=== PATIENT | female | born 1945 | race Two or more races ===

== ENCOUNTER 2017-04-10 15:46 | Emergency (ER) | payer OTHER ==
[~2017-04-10] VITALS: Ht 162.6 cm; Wt 81.2 kg
[~2017-04-10 15:46] MED LIST: ANUSOL SUP1 SUPP.REC RC; CLONAZEPAM1 MG; LOSARTAN-HCTZ1 EAC2; MIRALAX510 GM PO; OMEPRAZOLE20 M1; OXCARBAZEPINE150 MG; SERTRALINE HCL100 MG
[2017-04-10] MEDS ORDERED: SYNTHROID50 MCG (16:36)
== END 2017-04-10 20:36 | disposition home or self-care (01) ==
LOC: ER 15:46
DX: S00.83XA Contusion of other part of head, initial encounter (principal); S00.532A Contusion of oral cavity, initial encounter; W22.8XXA Striking against or struck by other objects, initial encounter; Y93.89 Activity, other specified; Y92.89 Other specified places as the place of occurrence of the external cause; Y99.8 Other external cause status

== ENCOUNTER 2017-05-09 10:14 | Outpatient (CLI) | payer OTHER ==
[~2017-05-09 10:14] MED LIST changes: +SYNTHROID50 MCG
== END 2017-05-09 10:25 | disposition home or self-care (01) ==
LOC: RAD 10:14
DX: J32.9 Chronic sinusitis, unspecified (principal); M12.831 Other specific arthropathies, not elsewhere classified, right wrist; M19.031 Primary osteoarthritis, right wrist

== ENCOUNTER 2017-06-11 10:10 | Outpatient (CLI) | payer OTHER | END 2017-06-11 10:18 | disposition home or self-care (01) | LOC: TOM 10:10 | DX: S05.11XA Contusion of eyeball and orbital tissues, right eye, initial encounter (principal) ==

== ENCOUNTER 2017-11-12 14:31 | Outpatient (CLI) | payer OTHER | END 2017-11-12 14:36 | disposition home or self-care (01) | LOC: RAD 14:31 | DX: T79.9XXS Unspecified early complication of trauma, sequela (principal) ==

== ENCOUNTER 2017-11-15 10:43 | Emergency (ER) | payer OTHER ==
[~2017-11-15] VITALS: Ht 160 cm; Wt 81.6 kg
[2017-11-15] MEDS ORDERED: ZITHROMAX500 MG PO (11:55)
[2017-11-15] MEDS ORDERED: MECLIZINE HCL25 MG PO (11:55)
[2017-11-15] MEDS ORDERED: METOCLOPRAMIDE10 MG PO (11:55)
== END 2017-11-15 12:51 | disposition home or self-care (01) ==
LOC: ER 10:43
DX: J32.1 Chronic frontal sinusitis (principal)

== ENCOUNTER 2017-12-25 12:34 | Outpatient (CLI) | payer OTHER ==
[~2017-12-25 12:34] MED LIST changes: +MECLIZINE HCL25 MG PO; +METOCLOPRAMIDE10 MG PO; +ZITHROMAX500 MG PO
== END 2017-12-25 12:39 | disposition home or self-care (01) ==
LOC: RAD 12:34
DX: M46.47 Discitis, unspecified, lumbosacral region (principal)

== ENCOUNTER 2017-12-29 16:15 | Emergency (ER) | payer OTHER ==
[~2017-12-29] VITALS: Ht 160 cm; Wt 81.2 kg
== END 2017-12-29 19:55 | disposition home or self-care (01) ==
LOC: ER 16:15
DX: G89.11 Acute pain due to trauma (principal); M54.5 Low back pain; M53.3 Sacrococcygeal disorders, not elsewhere classified

== ENCOUNTER 2018-01-04 08:55 | Day surgery (SDC) | payer OTHER | END 2018-01-04 18:10 | disposition home or self-care (01) | LOC: CIR.AMB 08:55 | DX: G50.0 Trigeminal neuralgia (principal) ==

== ENCOUNTER 2018-01-21 11:59 | Outpatient (CLI) | payer OTHER | END 2018-01-21 12:01 | disposition home or self-care (01) | LOC: RAD 11:59 | DX: T79.9XXS Unspecified early complication of trauma, sequela (principal) ==

== ENCOUNTER 2018-02-20 07:35 | Outpatient (CLI) | payer OTHER ==
[~2018-02-20] VITALS: Ht 157.5 cm; Wt 82.6 kg
[2018-02-20] MEDS ORDERED: LIPO-FLAVONOID1 EACH PO (09:32)
== END 2018-02-20 07:50 | disposition home or self-care (01) ==
LOC: OFIC 805 07:35
DX: R42 Dizziness and giddiness (principal)

== ENCOUNTER 2018-06-20 11:48 | Outpatient (CLI) | payer OTHER ==
[~2018-06-20 11:48] MED LIST changes: +LIPO-FLAVONOID1 EACH PO
== END 2018-06-20 13:00 | disposition home or self-care (01) ==
LOC: NUCLEAR 11:48
DX: I20.1 Angina pectoris with documented spasm (principal)

== ENCOUNTER → 2018-11-05 | Outpatient (CLI) | payer OTHER | END | disposition home or self-care (01) | LOC: MRI 10:15 | DX: G11.2 Late-onset cerebellar ataxia (principal); G50.0 Trigeminal neuralgia | CPT/HCPCS: 70551 ==

== ENCOUNTER 2018-12-27 09:12 | Outpatient (CLI) | payer OTHER ==
[~2018-12-27] VITALS: Ht 152.4 cm; Wt 78.0 kg
== END 2018-12-27 12:54 | disposition home or self-care (01) ==
LOC: OFIC 805 09:12
DX: J31.0 Chronic rhinitis (principal); R42 Dizziness and giddiness; H04.201 Unspecified epiphora, right side

== ENCOUNTER 2019-04-26 12:35 | Emergency (ER) | payer OTHER ==
[~2019-04-26] VITALS: Ht 157.5 cm; Wt 75.3 kg
[2019-04-26] MEDS ORDERED: ZANTAC150 MG (13:19)
[2019-04-26] MEDS ORDERED: PLAVIX75 MG (13:19)
[2019-04-26] MEDS ORDERED: IRBESARTAN-HCT1 EACH (13:19)
[2019-04-26] MEDS ORDERED: PROTONIX40 MG (13:20)
== END 2019-04-26 22:05 | disposition home or self-care (01) ==
LOC: ER 12:35
DX: R31.0 Gross hematuria (principal); R42 Dizziness and giddiness; R10.84 Generalized abdominal pain; R19.7 Diarrhea, unspecified

== ENCOUNTER 2019-05-29 12:44 | Outpatient (CLI) | payer OTHER ==
[~2019-05-29] VITALS: Ht 152.4 cm; Wt 82.6 kg
[~2019-05-29 12:44] MED LIST changes: +IRBESARTAN-HCT1 EACH; +PLAVIX75 MG; +PROTONIX40 MG; +ZANTAC150 MG
== END 2019-05-29 14:21 | disposition home or self-care (01) ==
LOC: OFIC 805 12:44
DX: J31.0 Chronic rhinitis (principal); R42 Dizziness and giddiness; J34.2 Deviated nasal septum; R09.82 Postnasal drip; R09.81 Nasal congestion; R06.02 Shortness of breath

== ENCOUNTER 2019-07-03 13:44 | Outpatient (CLI) | payer OTHER ==
[~2019-07-03] VITALS: Ht 152.4 cm; Wt 81.6 kg
== END 2019-07-03 17:17 | disposition home or self-care (01) ==
LOC: OFIC 805 13:44
DX: K21.0 Gastro-esophageal reflux disease with esophagitis (principal); J34.2 Deviated nasal septum; J45.998 Other asthma
CPT/HCPCS: 31575; 99213; G0463

== ENCOUNTER 2019-08-29 11:18 | Outpatient (CLI) | payer OTHER | END 2019-08-29 11:25 | disposition home or self-care (01) | LOC: RAD 11:18 | DX: M12.89 Other specific arthropathies, not elsewhere classified, multiple sites (principal); M46.47 Discitis, unspecified, lumbosacral region; G50.0 Trigeminal neuralgia; R56.9 Unspecified convulsions | CPT/HCPCS: 70551 ==

== ENCOUNTER 2019-09-29 08:46 | Outpatient (CLI) | payer OTHER ==
[~2019-09-29] VITALS: Ht 152.4 cm; Wt 83.9 kg
[2019-09-29] MEDS ORDERED: FLONASE16 GM NASAL (12:23)
[2019-09-29] MEDS ORDERED: ZYRTEC10 M3 PO (12:23)
== END 2019-09-29 15:48 | disposition home or self-care (01) ==
LOC: OFIC 805 08:46
PROVIDERS: ATTEND Otolaryngology
DX: J34.2 Deviated nasal septum (principal); J31.0 Chronic rhinitis

== ENCOUNTER 2019-10-27 12:05 | Outpatient (CLI) | payer OTHER ==
[~2019-10-27 12:05] MED LIST changes: +FLONASE16 GM NASAL; +ZYRTEC10 M3 PO
== END 2019-10-27 12:08 | disposition home or self-care (01) ==
LOC: TOM 12:05
PROVIDERS: ATTEND Otolaryngology
DX: J31.0 Chronic rhinitis (principal); J32.1 Chronic frontal sinusitis; J34.2 Deviated nasal septum

== ENCOUNTER 2019-12-26 05:56 | Day surgery (SDC) | payer OTHER ==
[~2019-12-26 05:56] MED LIST changes: +COZAAR100 MG PO
[2019-12-26] MEDS ORDERED: COLACE100 MG PO (12:29)
[2019-12-26] MEDS ORDERED: PERCOCET 5-3251 EACH PO (12:29)
== END 2019-12-26 16:45 | disposition home or self-care (01) ==
LOC: CIR.AMB 05:56
PROVIDERS: ATTEND Surgery
DX: K64.8 Other hemorrhoids (principal); Z20.828 Contact with and (suspected) exposure to other viral communicable diseases

== ENCOUNTER → 2020-04-08 13:21 | Outpatient (CLI) | payer OTHER | END | disposition home or self-care (01) | LOC: LAB 13:21 | PROVIDERS: ATTEND Internal Medicine Cardiovascular Disease | DX: U07.1 COVID-19 (principal); R05 Cough; R06.2 Wheezing; R50.9 Fever, unspecified ==

== ENCOUNTER → 2020-04-08 | Outpatient (CLI) | payer OTHER ==
[~2020-04-08] MED LIST changes: +COLACE100 MG PO; +PERCOCET 5-3251 EACH PO
== END | disposition home or self-care (01) ==
LOC: MRI 11:56
PROVIDERS: ATTEND Internal Medicine Cardiovascular Disease
DX: M43.17 Spondylolisthesis, lumbosacral region (principal); M54.15 Radiculopathy, thoracolumbar region
CPT/HCPCS: 72148

== ENCOUNTER 2020-06-15 12:13 | Outpatient (CLI) | payer OTHER | END 2020-06-15 15:32 | disposition home or self-care (01) | LOC: MRI 12:13 | PROVIDERS: ATTEND Internal Medicine Cardiovascular Disease | DX: M47.892 Other spondylosis, cervical region (principal); M12.88 Other specific arthropathies, not elsewhere classified, other specified site | CPT/HCPCS: 72141 ==

== ENCOUNTER 2020-08-31 13:49 | Outpatient (CLI) | payer OTHER | END 2020-08-31 14:32 | disposition home or self-care (01) | LOC: RAD 13:49 | PROVIDERS: ATTEND Surgery Surgery of the Hand | DX: M54.2 Cervicalgia (principal); G56.01 Carpal tunnel syndrome, right upper limb; G56.02 Carpal tunnel syndrome, left upper limb ==

== ENCOUNTER 2020-09-27 13:56 | Outpatient (CLI) | payer OTHER | END 2020-09-27 13:58 | disposition home or self-care (01) | LOC: RAD 13:56 | PROVIDERS: ATTEND Surgery Surgery of the Hand | DX: Z01.818 Encounter for other preprocedural examination (principal) ==

== ENCOUNTER → 2020-09-29 08:51 | Outpatient (CLI) | payer OTHER | END | disposition home or self-care (01) | LOC: LAB 08:51 | PROVIDERS: ATTEND Surgery Surgery of the Hand | DX: Z01.818 Encounter for other preprocedural examination (principal); D68.9 Coagulation defect, unspecified; I10 Essential (primary) hypertension ==

== ENCOUNTER 2021-01-13 12:32 | Outpatient (CLI) | payer OTHER | END 2021-01-13 12:43 | disposition home or self-care (01) | LOC: RAD 12:32 | PROVIDERS: ATTEND Internal Medicine Cardiovascular Disease | DX: M25.78 Osteophyte, vertebrae (principal); M46.47 Discitis, unspecified, lumbosacral region; M12.88 Other specific arthropathies, not elsewhere classified, other specified site ==

== ENCOUNTER 2021-03-29 18:01 | Emergency (ER) | payer OTHER ==
[~2021-03-29] VITALS: Ht 160 cm; Wt 74.8 kg
[2021-03-29] MEDS ORDERED: CLEOCIN HCL300 MG PO (19:11)
== END 2021-03-29 19:32 | disposition home or self-care (01) ==
LOC: ER 18:01
DX: L08.89 Other specified local infections of the skin and subcutaneous tissue (principal); S61.011A Laceration without foreign body of right thumb without damage to nail, initial encounter; W27.8XXA Contact with other nonpowered hand tool, initial encounter; Y93.E8 Activity, other personal hygiene; Y92.89 Other specified places as the place of occurrence of the external cause; Y99.8 Other external cause status

== ENCOUNTER 2021-04-18 16:50 | Emergency (ER) | payer OTHER ==
[~2021-04-18] VITALS: Ht 160 cm; Wt 73.9 kg
[~2021-04-18 16:50] MED LIST changes: +CLEOCIN HCL300 MG PO
[2021-04-18] MEDS ORDERED: CLONAZEPAM1 MG PO (19:16)
== END 2021-04-18 22:46 | disposition home or self-care (01) ==
LOC: ER 16:50
DX: R07.89 Other chest pain (principal); F06.4 Anxiety disorder due to known physiological condition

== ENCOUNTER 2021-05-31 15:13 | Outpatient (CLI) | payer OTHER ==
[~2021-05-31 15:13] MED LIST changes: +CLONAZEPAM1 MG PO
== END 2021-05-31 15:20 | disposition home or self-care (01) ==
LOC: TOM 15:13 → EDBD 15:13 → TOM 15:20
PROVIDERS: ATTEND Otolaryngology
DX: J32.3 Chronic sphenoidal sinusitis (principal); J01.90 Acute sinusitis, unspecified

== ENCOUNTER 2021-07-06 14:36 | Outpatient (CLI) | payer OTHER | END 2021-07-06 15:00 | disposition home or self-care (01) | LOC: RAD 14:36 | PROVIDERS: ATTEND Internal Medicine Cardiovascular Disease | DX: M79.641 Pain in right hand (principal); M12.9 Arthropathy, unspecified; M46.40 Discitis, unspecified, site unspecified ==

== ENCOUNTER 2021-08-03 17:24 | Emergency (ER) | payer OTHER ==
[~2021-08-03] VITALS: Ht 160 cm; Wt 73.9 kg
== END 2021-08-03 21:52 | disposition home or self-care (01) ==
LOC: ER 17:24
DX: R51.9 Headache, unspecified (principal); I10 Essential (primary) hypertension; Z88.6 Allergy status to analgesic agent; Z91.013 Allergy to seafood

== ENCOUNTER 2021-11-16 07:35 | Outpatient (CLI) | payer OTHER | END 2021-11-16 07:40 | disposition home or self-care (01) | LOC: LAB 07:35 | PROVIDERS: ATTEND Internal Medicine Cardiovascular Disease | DX: I10 Essential (primary) hypertension (principal); E11.9 Type 2 diabetes mellitus without complications; E03.9 Hypothyroidism, unspecified; E78.2 Mixed hyperlipidemia; E55.9 Vitamin D deficiency, unspecified; Z12.11 Encounter for screening for malignant neoplasm of colon ==

== ENCOUNTER 2021-11-16 08:30 | Outpatient (CLI) | payer OTHER | END 2021-11-16 08:35 | disposition home or self-care (01) | LOC: MAMO-SONO 08:30 | DX: Z12.31 Encounter for screening mammogram for malignant neoplasm of breast (principal); N63.11 Unspecified lump in the right breast, upper outer quadrant ==

== ENCOUNTER 2021-12-07 18:43 | Emergency (ER) | payer OTHER ==
[~2021-12-07] VITALS: Ht 157.5 cm; Wt 73.9 kg
== END 2021-12-07 21:18 | disposition home or self-care (01) ==
LOC: ER 18:43
DX: M72.2 Plantar fascial fibromatosis (principal); F32.A Depression, unspecified; I10 Essential (primary) hypertension; Z88.6 Allergy status to analgesic agent; Z91.013 Allergy to seafood

== ENCOUNTER 2021-12-13 10:04 | Outpatient (CLI) | payer OTHER | END 2021-12-13 10:13 | disposition home or self-care (01) | LOC: SONOGRAMA 10:04 | DX: M72.2 Plantar fascial fibromatosis (principal); G57.61 Lesion of plantar nerve, right lower limb; S92.404A Nondisplaced unspecified fracture of right great toe, initial encounter for closed fracture ==

== ENCOUNTER 2022-05-09 16:19 | Outpatient (CLI) | payer OTHER | END 2022-05-09 16:29 | disposition home or self-care (01) | LOC: RAD 16:19 | PROVIDERS: ATTEND Internal Medicine Cardiovascular Disease | DX: M46.48 Discitis, unspecified, sacral and sacrococcygeal region (principal); M12.9 Arthropathy, unspecified ==

== ENCOUNTER 2022-07-10 11:17 | Outpatient (CLI) | payer OTHER | END 2022-07-10 15:29 | disposition home or self-care (01) | LOC: LAB 11:17 | PROVIDERS: ATTEND Internal Medicine Cardiovascular Disease | DX: I10 Essential (primary) hypertension (principal); E11.9 Type 2 diabetes mellitus without complications; E03.9 Hypothyroidism, unspecified; E78.2 Mixed hyperlipidemia; K92.1 Melena; Z12.11 Encounter for screening for malignant neoplasm of colon; M12.9 Arthropathy, unspecified ==

== ENCOUNTER 2022-10-17 15:03 | Emergency (ER) | payer OTHER ==
[~2022-10-17] VITALS: Ht 162.6 cm; Wt 70.3 kg
== END 2022-10-17 21:12 | disposition home or self-care (01) ==
LOC: ER 15:03
DX: M54.42 Lumbago with sciatica, left side (principal); Z88.6 Allergy status to analgesic agent; Z91.013 Allergy to seafood; I10 Essential (primary) hypertension; F32.89 Other specified depressive episodes

== ENCOUNTER 2023-02-13 11:06 | Outpatient (CLI) | payer OTHER ==
[2023-02-13 12:00] LABS: HEMATOCRIT 45.6 % (36.0-45.00); HEMOGLOBIN 14.9 g/dL (12.0-15.00); MEAN CELL VOLUME 92.9 fL (80.00-100.00); MEAN CORPUSCULAR HEMOGLOBIN 30.3 pg (27.00-32.0); MEAN CORPUSCULAR HGB CONC 32.6 g/dl (32.0-36.0); PLATELET COUNT 185 K/uL (150-450); RED BLOOD COUNT 4.91 M/uL (4.00-6.00); RED CELL DISTRIBUTION WIDTH 14.3 % (11.5-14.5)
[2023-02-13 12:21] LABS: URINE APPEARANCE Clear; URINE BILIRRUBIN Negative (NEGATIVE); URINE BLOOD Trace; URINE COLOR Yellow; URINE GLUCOSE Negative (NEGATIVE); URINE LEUKOCYTE Negative; URINE NITRATE Negative; URINE PROTEIN Negative (NEGATIVE); URINE UROBILINOGEN 0.2 E.U./dl
[2023-02-13 12:25] LABS: URINE BACTERIA 6641.1 uL (0.0-1933); URINE EPITHELIAL CELLS 85.3 uL (0.0-38.8); URINE RBC 17.6 uL (0.0-20.8); URINE WBC 26.2 uL (0.0-23.2)
[2023-02-13 12:48] LABS: CALCIUM 10.6 mg/dL (8.5-10.1); CHOL HDL RATIO 3.9 (0-5.0); CREATININE SERUM 0.86 mg/dL (0.55-1.02); GFR 63.65; POTASSIUM 4.89 mEq/L (3.5-5.1); T4 TOTAL 6.4 UG/DL (4.8-13.9); TSH 2.63 uIU/mL (0.358-3.74)
[2023-02-13 12:51] LABS: T3 TOTAL 0.823 ng/ml (0.846-2.02); VITAMIN D3 25 HYDROXY 24.98 ng/ml (30-120)
== END 2023-02-13 11:11 | disposition home or self-care (01) ==
LOC: LAB 11:06
PROVIDERS: ATTEND Internal Medicine Cardiovascular Disease
DX: E03.9 Hypothyroidism, unspecified (principal); E78.2 Mixed hyperlipidemia; Z12.11 Encounter for screening for malignant neoplasm of colon; E55.9 Vitamin D deficiency, unspecified; E11.9 Type 2 diabetes mellitus without complications; I10 Essential (primary) hypertension

== ENCOUNTER → 2023-02-26 09:40 | Outpatient (CLI) | payer OTHER ==
[2023-02-26 10:32] LABS: HEMATOCRIT 42.9 % (36.0-45.00); HEMOGLOBIN 13.9 g/dL (12.0-15.00); MEAN CORPUSCULAR HEMOGLOBIN 30.2 pg (27.00-32.0); MEAN CORPUSCULAR HGB CONC 32.5 g/dl (32.0-36.0); PLATELET COUNT 172 K/uL (150-450); RED BLOOD COUNT 4.62 M/uL (4.00-6.00); RED CELL DISTRIBUTION WIDTH 14.4 % (11.5-14.5)
[2023-02-26 10:37] LABS: PH,URINE 5.5 (5.0-8.0); URINE APPEARANCE Clear; URINE BILIRRUBIN Negative (NEGATIVE); URINE BLOOD Negative; URINE COLOR Yellow; URINE GLUCOSE Negative (NEGATIVE); URINE LEUKOCYTE Negative; URINE NITRATE Negative; URINE PROTEIN Negative (NEGATIVE); URINE UROBILINOGEN 0.2 E.U./dl
[2023-02-26 10:41] LABS: URINE BACTERIA 613.5 uL (0.0-1933); URINE EPITHELIAL CELLS 9.8 uL (0.0-38.8); URINE RBC 7.1 uL (0.0-20.8); URINE WBC 5.5 uL (0.0-23.2)
[2023-02-26 10:49] LABS: INR 1.01; PARTIAL THROMBOPLASTIN TIME 25.3 SECONDS (22.0-34.0); PROTHROMBIN TIME 10.6 SECONDS (9.0-11.5)
[2023-02-26 10:54] LABS: ALBUMIN 3.3 gm/dL (3.4-5.0); BILIRUBIN TOTAL 0.38 mg/dL (0.3-1.2); CALCIUM 10.3 mg/dL (8.5-10.1); CREATININE SERUM 0.82 mg/dL (0.55-1.02); GFR 67.25; GLOBULINA 3.2 G/DL (2.4-3.5); POTASSIUM 4.7 mEq/L (3.5-5.1); TOTAL PROTEIN 6.5 gm/dL (6.4-8.2)
== END | disposition home or self-care (01) ==
LOC: LAB 09:40
PROVIDERS: ATTEND Specialist
DX: D68.4 Acquired coagulation factor deficiency (principal); Z88.6 Allergy status to analgesic agent; Z91.013 Allergy to seafood

== ENCOUNTER 2023-02-26 10:41 | Outpatient (CLI) | payer OTHER | END 2023-02-26 10:46 | disposition home or self-care (01) | LOC: RAD 10:41 | PROVIDERS: ATTEND Specialist | DX: I10 Essential (primary) hypertension (principal); Z88.6 Allergy status to analgesic agent; Z91.013 Allergy to seafood ==

== ENCOUNTER 2023-03-01 10:08 | Outpatient (CLI) | payer OTHER | END 2023-03-01 10:18 | disposition home or self-care (01) | LOC: MRI 10:08 | PROVIDERS: ATTEND Physical Medicine & Rehabilitation | DX: M54.16 Radiculopathy, lumbar region (principal); Z88.6 Allergy status to analgesic agent; Z91.013 Allergy to seafood | CPT/HCPCS: 72148 ==

== ENCOUNTER 2023-05-11 12:07 | Outpatient (CLI) | payer OTHER | END 2023-05-11 12:17 | disposition home or self-care (01) | LOC: MAMO-SONO 12:07 | PROVIDERS: ATTEND Internal Medicine Cardiovascular Disease | DX: N60.11 Diffuse cystic mastopathy of right breast (principal); N60.12 Diffuse cystic mastopathy of left breast; I10 Essential (primary) hypertension ==

== ENCOUNTER 2023-05-14 09:15 | Outpatient (CLI) | payer OTHER ==
[2023-05-14 10:25] LABS: PH,URINE 5.5 (5.0-8.0); URINE APPEARANCE Cloudy; URINE BILIRRUBIN Negative (NEGATIVE); URINE BLOOD Large; URINE COLOR Yellow; URINE GLUCOSE Negative (NEGATIVE); URINE LEUKOCYTE Small; URINE NITRATE Negative; URINE PROTEIN Trace (NEGATIVE)
[2023-05-14 10:27] LABS: URINE BACTERIA 2434.2 uL (0.0-1933); URINE EPITHELIAL CELLS 56.7 uL (0.0-38.8); URINE RBC 6560.7 uL (0.0-20.8); URINE WBC 32.1 uL (0.0-23.2)
[2023-05-14 10:44] LABS: HEMATOCRIT 43.5 % (36.0-45.00); HEMOGLOBIN 14.4 g/dL (12.0-15.00); MEAN CELL VOLUME 91.6 fL (80.00-100.00); MEAN CORPUSCULAR HEMOGLOBIN 30.2 pg (27.00-32.0); PLATELET COUNT 174 K/uL (150-450); RED BLOOD COUNT 4.75 M/uL (4.00-6.00); RED CELL DISTRIBUTION WIDTH 13.8 % (11.5-14.5)
[2023-05-14 10:57] LABS: INR 0.99; PARTIAL THROMBOPLASTIN TIME 26.3 SECONDS (22.0-34.0); PROTHROMBIN TIME 10.4 SECONDS (9.0-11.5)
[2023-05-14 11:18] LABS: ALBUMIN 3.4 gm/dL (3.4-5.0); BILIRUBIN TOTAL 0.46 mg/dL (0.3-1.2); CALCIUM 10.2 mg/dL (8.5-10.1); CHOL HDL RATIO 3.9 (0-5.0); CREATININE SERUM 0.78 mg/dL (0.55-1.02); GFR 71.24; GLOBULINA 3.4 G/DL (2.4-3.5); POTASSIUM 4.51 mEq/L (3.5-5.1); T4 TOTAL 6.82 UG/DL (4.8-13.9); TOTAL PROTEIN 6.8 gm/dL (6.4-8.2); TSH 3.69 uIU/mL (0.358-3.74)
[2023-05-14 11:42] LABS: T3 TOTAL 0.95 ng/ml (0.846-2.02); VITAMIN D3 25 HYDROXY 22.81 ng/ml (30-120)
== END 2023-05-14 09:16 | disposition home or self-care (01) ==
LOC: LAB 09:15
PROVIDERS: ATTEND Internal Medicine Cardiovascular Disease
DX: I10 Essential (primary) hypertension (principal); E11.9 Type 2 diabetes mellitus without complications; E03.9 Hypothyroidism, unspecified; E78.2 Mixed hyperlipidemia; Z12.11 Encounter for screening for malignant neoplasm of colon; E55.9 Vitamin D deficiency, unspecified; D68.9 Coagulation defect, unspecified

== ENCOUNTER 2023-05-14 10:45 | Emergency (ER) | payer OTHER ==
[~2023-05-14] VITALS: Ht 152.4 cm; Wt 83.9 kg
== END 2023-05-14 16:06 | disposition home or self-care (01) ==
LOC: ER
DX: M25.511 Pain in right shoulder (principal); Z88.6 Allergy status to analgesic agent; Z91.013 Allergy to seafood
CPT/HCPCS: 96372; 99284; J2360

== ENCOUNTER 2023-05-18 11:19 | Outpatient (CLI) | payer OTHER | END 2023-05-18 11:27 | disposition home or self-care (01) | LOC: RAD 11:19 | PROVIDERS: ATTEND Internal Medicine Cardiovascular Disease | DX: S09.8XXA Other specified injuries of head, initial encounter (principal) ==

== ENCOUNTER 2023-05-18 12:27 | Outpatient (CLI) | payer OTHER | END 2023-05-18 12:28 | disposition home or self-care (01) | LOC: NUCLEAR 12:27 | PROVIDERS: ATTEND Internal Medicine Cardiovascular Disease | DX: M81.0 Age-related osteoporosis without current pathological fracture (principal); E55.9 Vitamin D deficiency, unspecified ==

== ENCOUNTER 2023-05-20 16:26 | Emergency (ER) | payer OTHER ==
[~2023-05-20] VITALS: Ht 160 cm; Wt 73.5 kg
== END 2023-05-20 17:33 | disposition home or self-care (01) ==
LOC: ER 16:26
DX: N64.4 Mastodynia (principal); Z88.6 Allergy status to analgesic agent; Z91.013 Allergy to seafood
CPT/HCPCS: 96372; 99282; J0696; J1100

== ENCOUNTER 2023-05-23 13:08 | Emergency (ER) | payer OTHER ==
[~2023-05-23] VITALS: Ht 160 cm; Wt 73.9 kg
[2023-05-23] MEDS ORDERED: FAMOTIDINE40 MG (13:12)
[2023-05-23] MEDS ORDERED: PEPCID AC20 MG (13:13)
[2023-05-23] MEDS ORDERED: OXYBUTYNIN CHLO15 MG (13:13)
[2023-05-23] MEDS ORDERED: VENLAFAXINE HCL75 M1 (13:14)
[2023-05-23] MEDS ORDERED: DOLOGEN CAPLET1 EACH PO (14:35)
== END 2023-05-23 14:40 | disposition home or self-care (01) ==
LOC: ER 13:08
DX: M54.50 Low back pain, unspecified (principal); I10 Essential (primary) hypertension; Z88.6 Allergy status to analgesic agent; Z91.013 Allergy to seafood; M51.37 Other intervertebral disc degeneration, lumbosacral region
CPT/HCPCS: 72100; 96372; 99283; J1100; J2360

== ENCOUNTER → 2023-05-28 | Outpatient (CLI) | payer OTHER ==
[~2023-05-28] MED LIST changes: +DOLOGEN CAPLET1 EACH PO; +FAMOTIDINE40 MG; +OXYBUTYNIN CHLO15 MG; +PEPCID AC20 MG; +VENLAFAXINE HCL75 M1
== END | disposition home or self-care (01) ==
LOC: MRI 10:08
PROVIDERS: ATTEND Internal Medicine Cardiovascular Disease
DX: M46.47 Discitis, unspecified, lumbosacral region (principal)
CPT/HCPCS: 72148

== ENCOUNTER 2023-05-30 10:32 | Emergency (ER) | payer OTHER ==
[~2023-05-30] VITALS: Ht 160 cm; Wt 73.0 kg
[2023-05-30] MEDS ORDERED: MEPERIDINE HCL/PF 50 MG/ML VIAL IM STA (11:43)
[2023-05-30] MEDS ORDERED: CEFTRIAXONE SODIUM 2,000 MG VIAL IV ONE (11:45)
[2023-05-30 12:04] LABS: HEMOGLOBIN 14.5 g/dL (12.0-15.00); MEAN CELL VOLUME 92.6 fL (80.00-100.00); MEAN CORPUSCULAR HEMOGLOBIN 31.2 pg (27.00-32.0); MEAN CORPUSCULAR HGB CONC 33.7 g/dl (32.0-36.0); RED BLOOD COUNT 4.64 M/uL (4.00-6.00); RED CELL DISTRIBUTION WIDTH 13.7 % (11.5-14.5)
[2023-05-30 12:26] LABS: CALCIUM 10.5 mg/dL (8.5-10.1); CREATININE SERUM 1.61 mg/dL (0.55-1.02); GFR 30.87; POTASSIUM 4.13 mEq/L (3.5-5.1)
[2023-05-30 12:28] LABS: PLATELET COUNT 167 K/uL (150-450)
[2023-05-30 12:34] LABS: PH,URINE 7.5 (5.0-8.0); URINE APPEARANCE Clear; URINE BILIRRUBIN Negative (NEGATIVE); URINE BLOOD Negative; URINE COLOR Yellow; URINE GLUCOSE Negative (NEGATIVE); URINE LEUKOCYTE Negative; URINE NITRATE Negative; URINE PROTEIN Trace (NEGATIVE); URINE UROBILINOGEN 0.2 E.U./dl
[2023-05-30 12:36] LABS: URINE BACTERIA 1220.9 uL (0.0-1933); URINE EPITHELIAL CELLS 15.7 uL (0.0-38.8); URINE RBC 32.6 uL (0.0-20.8); URINE WBC 6.9 uL (0.0-23.2)
== END 2023-05-30 17:46 | disposition home or self-care (01) ==
LOC: ER 10:32
PROVIDERS: General Practice
DX: N61.1 Abscess of the breast and nipple (principal); Z91.013 Allergy to seafood; Z88.6 Allergy status to analgesic agent
CPT/HCPCS: 36415; 96365; 96372; 99282; J0696; J3490

== ENCOUNTER 2023-06-11 10:27 | Outpatient (CLI) | payer OTHER | END 2023-06-11 10:32 | disposition home or self-care (01) | LOC: RAD 10:27 | DX: N20.0 Calculus of kidney (principal) ==

== ENCOUNTER 2023-06-11 10:34 | Inpatient (IN) | payer OTHER ==
[~2023-06-11] VITALS: Ht 160 cm; Wt 73.0 kg
[2023-06-11] MEDS ORDERED: NITROGLYCERIN IN 5 % DEXTROSE 250 ML IV SCH (13:15)
[2023-06-11] MEDS ORDERED: TICAGRELOR 90 MG TABLET PO STA (13:16)
[2023-06-11] MEDS ORDERED: SODIUM CHLORIDE 0.45 % 1,000 ML IV STA (13:16)
[2023-06-11 14:07] LABS: ABG PH 7.453 (7.35-7.45); ABG PO2 82.8 mmHg (80-100); ABG pCO2 34.9 mmHg (35-45); BASE EXCESS 0.5 mmol/l; BICARBONATE 23.8 mmol/l (23-25); SaO2 96.7 %; Tco2 24.9 mmol/l
[2023-06-11 14:08] LABS: allen test SATISFACTORY; o2 21 %; puncture site RADIAL RIGHT
[2023-06-11 14:08] LABS: HEMATOCRIT 40.8 % (36.0-45.00); HEMOGLOBIN 13.4 g/dL (12.0-15.00); MEAN CELL VOLUME 92.1 fL (80.00-100.00); MEAN CORPUSCULAR HEMOGLOBIN 30.3 pg (27.00-32.0); MEAN CORPUSCULAR HGB CONC 32.9 g/dl (32.0-36.0); PLATELET COUNT 206 K/uL (150-450); RED BLOOD COUNT 4.43 M/uL (4.00-6.00); RED CELL DISTRIBUTION WIDTH 13.5 % (11.5-14.5)
[2023-06-11 14:33] LABS: ALBUMIN 3.1 gm/dL (3.4-5.0); BILIRUBIN TOTAL 0.44 mg/dL (0.3-1.2); CALCIUM 10.4 mg/dL (8.5-10.1); CREATININE SERUM 1.6 mg/dL (0.55-1.02); GFR 31.09; GLOBULINA 4.3 G/DL (2.4-3.5); POTASSIUM 4.54 mEq/L (3.5-5.1); TOTAL PROTEIN 7.4 gm/dL (6.4-8.2)
[2023-06-11 15:01] LABS: INR 1.14; PARTIAL THROMBOPLASTIN TIME 24.3 SECONDS (22.0-34.0); PROTHROMBIN TIME 11.9 SECONDS (9.0-11.5)
[2023-06-11] MEDS ORDERED: ATORVASTATIN CALCIUM 40 MG TABLET PO SCH (17:31)
[2023-06-11] MEDS ORDERED: FAMOTIDINE/PF 20 MG in 0.9 % SODIUM CHLORIDE 8 ML IV PUSH SCH (17:32)
[2023-06-11] MEDS ORDERED: METOPROLOL SUCCINATE 25 MG TAB.SR.24H PO SCH (17:33)
[2023-06-11] MEDS ORDERED: ENOXAPARIN SODIUM 60 MG/0.6 ML SYRINGE SUBCUTANEO SCH (17:39)
[2023-06-11] MEDS ORDERED: hydrOXYzine PAMOATE 25 MG CAPSULE PO ONE (17:45)
[2023-06-11] MEDS ORDERED: MORPHINE SULFATE 4 MG/ML CARTRIDGE IV PRN (17:45)
[2023-06-11] MEDS ORDERED: ACETAMINOPHEN 500 MG GEL..CAP PO PRN (17:45)
[2023-06-11] MEDS ORDERED: ONDANSETRON HCL 4 MG in 0.9 % SODIUM CHLORIDE 50 ML IV ONE (17:45)
[2023-06-11 18:53] LABS: PH,URINE 5.5 (5.0-8.0); URINE APPEARANCE Cloudy; URINE BILIRRUBIN Negative (NEGATIVE); URINE BLOOD Large; URINE COLOR Orange; URINE GLUCOSE Negative (NEGATIVE); URINE LEUKOCYTE Moderate; URINE NITRATE Negative; URINE UROBILINOGEN 0.2 E.U./dl
[2023-06-11 18:54] LABS: URINE BACTERIA 238.1 uL (0.0-1933); URINE EPITHELIAL CELLS 40.1 uL (0.0-38.8); URINE RBC 8126.7 uL (0.0-20.8); URINE WBC 191.5 uL (0.0-23.2)
[2023-06-11 19:07] LABS: MAGNESIUM 1.9 mg/dL (1.8-2.4); PHOSPHOROUS 2.6 mg/dL (2.5-4.9)
[2023-06-11 19:15] LABS: URINE PROTEIN 100 (NEGATIVE)
[2023-06-11 19:16] LABS: URINE MUCUS MODERATE
[2023-06-11 23:55] LABS: ABG PO2 105.1 mmHg (80-100); BASE EXCESS 1.9 mmol/l; BICARBONATE 26.6 mmol/l (23-25)
[2023-06-11 23:56] LABS: Tco2 27.9 mmol/l; allen test SATISFACTORY; o2 32 %; puncture site RADIAL LEFT
[2023-06-11 23:57] LABS: SaO2 98.1 %
[2023-06-12] MEDS ORDERED: TICAGRELOR 90 MG TABLET PO SCH (05:00)
[2023-06-12 07:02] LABS: CHOL HDL RATIO 3.5 (0-5.0)
[2023-06-12 07:04] LABS: TSH 0.958 uIU/mL (0.358-3.74)
[2023-06-12] MEDS ORDERED: CARVEDILOL 6.25 MG TABLET PO SCH (09:00)
[2023-06-12] MEDS ORDERED: SODIUM CHLORIDE 0.45 % 1,000 ML IV SCH (15:15)
[2023-06-13 07:01] LABS: ALBUMIN 2.4 gm/dL (3.4-5.0); BILIRUBIN TOTAL 0.56 mg/dL (0.3-1.2); CALCIUM 8.9 mg/dL (8.5-10.1); CREATININE SERUM 0.98 mg/dL (0.55-1.02); GFR 54.75; GLOBULINA 3.7 G/DL (2.4-3.5); POTASSIUM 4.33 mEq/L (3.5-5.1); TOTAL PROTEIN 6.1 gm/dL (6.4-8.2)
[2023-06-13] MEDS ORDERED: CLONAZEPAM 0.5 MG TABLET PO PRN (19:15)
[2023-06-14] MEDS ORDERED: ISOSORBIDE MONONITRATE 30 MG TABLET PO SCH (17:42)
[2023-06-15] MEDS ORDERED: BUTALB/ACETAMINOPHEN/CAFFEINE 1 TAB TABLET PO PRN (13:45)
[2023-06-15] MEDS ORDERED: ENOXAPARIN SODIUM 60 MG/0.6 ML SYRINGE SUBCUTANEO SCH (21:00)
[2023-06-16] MEDS ORDERED: PHENAZOPYRIDINE HCL 100 MG TABLET PO SCH (13:25)
[2023-06-16 15:55] LABS: PH,URINE 5.5 (5.0-8.0); URINE APPEARANCE Clear; URINE BILIRRUBIN Negative (NEGATIVE); URINE BLOOD Large; URINE COLOR Yellow; URINE GLUCOSE Negative (NEGATIVE); URINE LEUKOCYTE Small; URINE NITRATE Negative; URINE PROTEIN 30 (NEGATIVE)
[2023-06-16 15:59] LABS: URINE BACTERIA 90.7 uL (0.0-1933); URINE EPITHELIAL CELLS 3.5 uL (0.0-38.8); URINE RBC 1210.9 uL (0.0-20.8); URINE WBC 34.4 uL (0.0-23.2)
[2023-06-17] MEDS ORDERED: POLYETHYLENE GLYCOL 3350 17 GM BLIST.PACK PO SCH (10:13)
[2023-06-17] MEDS ORDERED: FLUCONAZOLE IN NACL,ISO-OSM 50 ML IV SCH (17:38)
[2023-06-18 05:44] LABS: HEMATOCRIT 33.9 % (36.0-45.00); HEMOGLOBIN 11.4 g/dL (12.0-15.00); MEAN CELL VOLUME 91.2 fL (80.00-100.00); MEAN CORPUSCULAR HEMOGLOBIN 30.8 pg (27.00-32.0); MEAN CORPUSCULAR HGB CONC 33.8 g/dl (32.0-36.0); PLATELET COUNT 273 K/uL (150-450); RED BLOOD COUNT 3.71 M/uL (4.00-6.00); RED CELL DISTRIBUTION WIDTH 13.1 % (11.5-14.5)
[2023-06-18 07:28] LABS: ALBUMIN 2.3 gm/dL (3.4-5.0); BILIRUBIN TOTAL 0.44 mg/dL (0.3-1.2); CALCIUM 10.1 mg/dL (8.5-10.1); CREATININE SERUM 0.69 mg/dL (0.55-1.02); GFR 82.07; GLOBULINA 3.6 G/DL (2.4-3.5); POTASSIUM 4.09 mEq/L (3.5-5.1); TOTAL PROTEIN 5.9 gm/dL (6.4-8.2)
[2023-06-18] MEDS ORDERED: ZINC OXIDE 30 GM TUBE TOP SCH (17:00)
[2023-06-18] MEDS ORDERED: NYSTATIN 30 GM,SILVER SULFADIAZINE 50 GM,ZINC OXIDE 30 GM TOP SCH (17:00)
[2023-06-18] MEDS ORDERED: NYSTATIN 30 GM CREAM.GM. TOP SCH (17:00)
[2023-06-18] MEDS ORDERED: SILVER SULFADIAZINE 50 GM JAR TOP SCH (17:00)
[2023-06-18] MEDS ORDERED: FLUCONAZOLE IN NACL,ISO-OSM 2 MG/ML ML IV SCH (17:00)
[2023-06-19] MEDS ORDERED: TRAMADOL HCL 50 MG TABLET PO PRN (08:45)
[2023-06-19 12:04] LABS: INR 1.08; PARTIAL THROMBOPLASTIN TIME 27.3 SECONDS (22.0-34.0); PROTHROMBIN TIME 11.3 SECONDS (9.0-11.5)
[2023-06-19 17:51] LABS: ABG PH 7.453 (7.35-7.45); ABG pCO2 40.3 mmHg (35-45); BASE EXCESS 3.4 mmol/l; BICARBONATE 27.6 mmol/l (23-25); SaO2 95.8 %; Tco2 28.8 mmol/l; allen test SATISFACTORY; o2 21 %; puncture site RADIAL RIGHT
[2023-06-20] MEDS ORDERED: REMDESIVIR 100 MG VIAL IV ONE (13:15)
[2023-06-21] MEDS ORDERED: FLUCONAZOLE 100 MG TABLET PO SCH (11:13)
[2023-06-21] MEDS ORDERED: CEFTRIAXONE SODIUM 2,000 MG VIAL IV SCH (11:15)
[2023-06-21 13:30] LABS: ALBUMIN 2.6 gm/dL (3.4-5.0); BILIRUBIN TOTAL 0.3 mg/dL (0.3-1.2); CALCIUM 10.8 mg/dL (8.5-10.1); CREATININE SERUM 0.71 mg/dL (0.55-1.02); GFR 79.41; GLOBULINA 4.2 G/DL (2.4-3.5); POTASSIUM 3.96 mEq/L (3.5-5.1); TOTAL PROTEIN 6.8 gm/dL (6.4-8.2)
[2023-06-21 13:40] LABS: FERRITIN 567.8 NG/ML (8-252)
[2023-06-21 13:53] LABS: PH,URINE 5.5 (5.0-8.0); URINE APPEARANCE Turbid; URINE BILIRRUBIN Small (NEGATIVE); URINE BLOOD Large; URINE COLOR Orange; URINE GLUCOSE Negative (NEGATIVE); URINE LEUKOCYTE Large; URINE NITRATE Positive
[2023-06-21 13:58] LABS: URINE WBC 4870.4 uL (0.0-23.2)
[2023-06-21 14:19] LABS: URINE BACTERIA > 9821.5 uL (0.0-1933); URINE PROTEIN 300 (NEGATIVE); URINE RBC > 10558.9 uL (0.0-20.8)
[2023-06-21 14:22] LABS: URINE CRYSTALS FEW /HPF
[2023-06-21] MEDS ORDERED: REMDESIVIR 100 MG VIAL IV SCH (17:00)
[2023-06-21] MEDS ORDERED: LACTOBACILLUS ACIDOPHILUS 1 CAP CAP PO SCH (17:00)
[2023-06-22] MEDS ORDERED: VITAMIN B COMPLEX 1 EACH PO SCH (19:39)
[2023-06-22] MEDS ORDERED: SOD FERRIC GLUC COMPLX/SUCROSE 62.5 MG/5 ML AMPUL IV SCH (19:39)
[2023-06-22] MEDS ORDERED: Cyanocobalamin/Mecobalamin 1 TAB.SL SL SCH (19:39)
[2023-06-22] MEDS ORDERED: MEROPENEM 1,000 MG VIAL IV SCH (21:00)
[2023-06-23 07:53] LABS: HEMATOCRIT 34.9 % (36.0-45.00); HEMOGLOBIN 11.6 g/dL (12.0-15.00); MEAN CELL VOLUME 91.1 fL (80.00-100.00); MEAN CORPUSCULAR HEMOGLOBIN 30.4 pg (27.00-32.0); MEAN CORPUSCULAR HGB CONC 33.4 g/dl (32.0-36.0); PLATELET COUNT 215 K/uL (150-450); RED BLOOD COUNT 3.83 M/uL (4.00-6.00)
[2023-06-23 08:06] LABS: ERYTHROCYTE SEDIMENTATION RATE 100 mm/hr
[2023-06-23 08:34] LABS: ALBUMIN 2.5 gm/dL (3.4-5.0); BILIRUBIN TOTAL 0.44 mg/dL (0.3-1.2); CALCIUM 10.4 mg/dL (8.5-10.1); CREATININE SERUM 0.68 mg/dL (0.55-1.02); GFR 83.47; GLOBULINA 4.2 G/DL (2.4-3.5); TOTAL PROTEIN 6.7 gm/dL (6.4-8.2)
[2023-06-23 08:39] LABS: C-REACTIVE PROTEIN 13.2 MG/DL (0.00-0.29); POTASSIUM 5.28 mEq/L (3.5-5.1)
[2023-06-23] MEDS ORDERED: APIXABAN 2.5 MG TABLET PO SCH (09:00)
[2023-06-23] MEDS ORDERED: CLOPIDOGREL BISULFATE 75 MG TABLET PO SCH (09:00)
[2023-06-24 07:38] LABS: HEMATOCRIT 33.3 % (36.0-45.00); HEMOGLOBIN 11.1 g/dL (12.0-15.00); MEAN CELL VOLUME 91.4 fL (80.00-100.00); MEAN CORPUSCULAR HEMOGLOBIN 30.6 pg (27.00-32.0); MEAN CORPUSCULAR HGB CONC 33.5 g/dl (32.0-36.0); PLATELET COUNT 205 K/uL (150-450); RED BLOOD COUNT 3.64 M/uL (4.00-6.00); RED CELL DISTRIBUTION WIDTH 14.2 % (11.5-14.5)
[2023-06-25] MEDS ORDERED: TRAMADOL HCL 50 MG TABLET PO SCH (18:50)
[2023-06-26 02:04] LABS: URINE APPEARANCE Turbid; URINE BILIRRUBIN Small (NEGATIVE); URINE BLOOD Large; URINE COLOR Orange; URINE GLUCOSE Negative (NEGATIVE); URINE LEUKOCYTE Moderate; URINE NITRATE Positive
[2023-06-26 02:08] LABS: URINE BACTERIA 534.2 uL (0.0-1933); URINE EPITHELIAL CELLS 21.3 uL (0.0-38.8); URINE RBC 8161.3 uL (0.0-20.8); URINE WBC 1069.5 uL (0.0-23.2)
[2023-06-26 02:21] LABS: URINE PROTEIN 100 (NEGATIVE); URINE YEAST FEW /hpf
[2023-06-28] MEDS ORDERED: FLUCONAZOLE 200 MG TABLET PO SCH (09:00)
[2023-06-28] MEDS ORDERED: TRAMADOL HCL 50 MG TABLET PO PRN (17:15)
[2023-06-29 08:16] LABS: HEMATOCRIT 32.2 % (36.0-45.00); HEMOGLOBIN 10.7 g/dL (12.0-15.00); MEAN CELL VOLUME 90.1 fL (80.00-100.00); MEAN CORPUSCULAR HEMOGLOBIN 29.8 pg (27.00-32.0); PLATELET COUNT 247 K/uL (150-450); RED BLOOD COUNT 3.58 M/uL (4.00-6.00); RED CELL DISTRIBUTION WIDTH 14.8 % (11.5-14.5)
[2023-06-29 09:22] LABS: BILIRUBIN TOTAL 0.44 mg/dL (0.3-1.2); CALCIUM 10.8 mg/dL (8.5-10.1); CREATININE SERUM 0.56 mg/dL (0.55-1.02); GFR 104.43; POTASSIUM 4.28 mEq/L (3.5-5.1)
[2023-06-29 15:13] LABS: URINE APPEARANCE Cloudy; URINE BILIRRUBIN Negative (NEGATIVE); URINE BLOOD Large; URINE COLOR Orange; URINE GLUCOSE Negative (NEGATIVE); URINE LEUKOCYTE Large; URINE NITRATE Positive
[2023-06-29 15:17] LABS: URINE BACTERIA 418.3 uL (0.0-1933); URINE EPITHELIAL CELLS 5.7 uL (0.0-38.8); URINE WBC 598.5 uL (0.0-23.2)
[2023-06-29 15:52] LABS: URINE PROTEIN 100 (NEGATIVE); URINE RBC > 10558.9 uL (0.0-20.8)
[2023-07-02 12:34] LABS: ALBUMIN 2.2 gm/dL (3.4-5.0); BILIRUBIN TOTAL 0.53 mg/dL (0.3-1.2); BILIRUBIN,CONJUGATED 0.18 mg/dL (0.0-0.2); BILIRUBIN,UNCONJUGATED 0.35 mg/dL (0.0-0.6); TOTAL PROTEIN 6.3 gm/dL (6.4-8.2)
[2023-07-03] MEDS ORDERED: FUROsemide 20 MG/2 ML VIAL IV SCH (09:00)
[2023-07-03] MEDS ORDERED: ALBUMIN HUMAN-25 0.25GM/ML (50ML) VIAL IV SCH (09:00)
[2023-07-03] MEDS ORDERED: TRAMADOL HCL 50 MG TABLET PO PRN (13:00)
[2023-07-05 11:20] LABS: HEMATOCRIT 33.2 % (36.0-45.00); HEMOGLOBIN 10.7 g/dL (12.0-15.00); MEAN CELL VOLUME 91.2 fL (80.00-100.00); MEAN CORPUSCULAR HEMOGLOBIN 29.5 pg (27.00-32.0); MEAN CORPUSCULAR HGB CONC 32.3 g/dl (32.0-36.0); PLATELET COUNT 283 K/uL (150-450); RED BLOOD COUNT 3.64 M/uL (4.00-6.00); RED CELL DISTRIBUTION WIDTH 14.8 % (11.5-14.5)
[2023-07-05 11:32] LABS: ALBUMIN 2.1 gm/dL (3.4-5.0); BILIRUBIN TOTAL 0.5 mg/dL (0.3-1.2); CREATININE SERUM 0.64 mg/dL (0.55-1.02); GFR 89.51; GLOBULINA 4.5 G/DL (2.4-3.5); POTASSIUM 4.28 mEq/L (3.5-5.1); TOTAL PROTEIN 6.6 gm/dL (6.4-8.2)
[2023-07-06] MEDS ORDERED: TRAMADOL HCL 50 MG TABLET PO PRN (15:00)
[2023-07-06] MEDS ORDERED: AMINO ACIDS/PROTEIN HYDROLYS 30 ML BLIST.PACK PO SCH (16:00)
[2023-07-09] MEDS ORDERED: FUROsemide 20 MG/2 ML VIAL IV SCH (09:00)
[2023-07-09] MEDS ORDERED: ISOSORBIDE MONO30 MG PO (17:35)
[2023-07-09] MEDS ORDERED: TRAMADOL HCL E100 MG PO (17:35)
[2023-07-09] MEDS ORDERED: CARVEDILOL6.25 MG PO (17:35)
[2023-07-09] MEDS ORDERED: APETIGEN P12.5 MG/15 PO (17:35)
[2023-07-09] MEDS ORDERED: ELIQUIS2.5 MG PO (17:35)
[2023-07-09] MEDS ORDERED: PROTEINEX-18 LI30 ML PO (17:35)
[2023-07-09] MEDS ORDERED: LIPITOR40 M1 PO (17:35)
[2023-07-09] MEDS ORDERED: B Complex PO (17:35)
[2023-07-09] MEDS ORDERED: Neurin-Sl Tablet Sl SL (17:35)
[2023-07-09] MEDS ORDERED: CLOPIDOGREL BIS75 MG PO (17:35)
== END 2023-07-09 20:38 | disposition home or self-care (01) | DRG 280 ==
LOC: ER 10:34 → MEDJ 19:06 → ICU-2 19:06 → MEDI 06-13 19:05 → MEDJ 06-19 12:46
PROVIDERS: General Practice; Internal Medicine; Internal Medicine Hematology & Oncology; Internal Medicine Infectious Disease; Internal Medicine Nephrology; Radiology Vascular & Interventional Radiology; Specialist; ADMIT Internal Medicine; ATTEND Internal Medicine
PROC: B24BZZZ Ultrasonography of Heart with Aorta (ICD-10-PCS; 2023-06-12)
PROC: B54DZZZ Ultrasonography of Bilateral Lower Extremity Veins (ICD-10-PCS; 2023-06-13)
PROC: 4A12X4Z Monitoring of Cardiac Electrical Activity, External Approach (ICD-10-PCS; 2023-06-13)
PROC: 06H03DZ Insertion of Intraluminal Device into Inferior Vena Cava, Percutaneous Approach (ICD-10-PCS; principal; 2023-06-19 23:30)
PROC: XW033E5 Introduction of Remdesivir Anti-infective into Peripheral Vein, Percutaneous Approach, New Technology Group 5 (ICD-10-PCS; 2023-06-21)
PROC: BW40ZZZ Ultrasonography of Abdomen (ICD-10-PCS; 2023-06-29)
DX: I21.4 Non-ST elevation (NSTEMI) myocardial infarction (principal); A41.9 Sepsis, unspecified organism; U07.1 COVID-19; I82.413 Acute embolism and thrombosis of femoral vein, bilateral; N17.9 Acute kidney failure, unspecified; I82.4Z3 Acute embolism and thrombosis of unspecified deep veins of distal lower extremity, bilateral; I82.441 Acute embolism and thrombosis of right tibial vein; I82.451 Acute embolism and thrombosis of right peroneal vein; N39.0 Urinary tract infection, site not specified; I24.9 Acute ischemic heart disease, unspecified; I25.10 Atherosclerotic heart disease of native coronary artery without angina pectoris; E03.9 Hypothyroidism, unspecified; F43.23 Adjustment disorder with mixed anxiety and depressed mood; B96.1 Klebsiella pneumoniae [K. pneumoniae] as the cause of diseases classified elsewhere; B96.89 Other specified bacterial agents as the cause of diseases classified elsewhere; D53.1 Other megaloblastic anemias, not elsewhere classified; K80.20 Calculus of gallbladder without cholecystitis without obstruction; I13.10 Hypertensive heart and chronic kidney disease without heart failure, with stage 1 through stage 4 chronic kidney disease, or unspecified chronic kidney disease; N18.9 Chronic kidney disease, unspecified

== ENCOUNTER 2023-07-29 12:42 | Inpatient (IN) | payer OTHER ==
[~2023-07-29] VITALS: Ht 162.6 cm; Wt 81.6 kg
[~2023-07-29 12:42] MED LIST changes: +APETIGEN P12.5 MG/15 PO; +B Complex PO; +CARVEDILOL6.25 MG PO; +CLOPIDOGREL BIS75 MG PO; +ELIQUIS2.5 MG PO; +ISOSORBIDE MONO30 MG PO; +LIPITOR40 M1 PO; +Neurin-Sl Tablet Sl SL; +PROTEINEX-18 LI30 ML PO; +TRAMADOL HCL E100 MG PO
[2023-07-29] MEDS ORDERED: GABAPENTIN100 MG (12:46)
--- NOTE | 2023-07-29 12:50 | NUR ---
PTE ALERTA Y ORIENTADA X3 DE AMBULANCIA REFIERE DEBILIDAD, EDEMA Y DOLOR EN EXTREMIDADES SUPERIORES E INFERIORES, NAUSEAS, DIICULTAD PARA RESPIRAR, ARDOR AL ORINAR. SE MIDEN S/V AL MOMENTO PTE SAT. 95%. SE COLOCA BAJO OBSERVCION Y SE COLOCA CANULA NASAL @3L/MIN.
[2023-07-29 17:27] LABS: PH,URINE 5.5 (5.0-8.0); URINE APPEARANCE Turbid; URINE BILIRRUBIN Negative (NEGATIVE); URINE BLOOD Large; URINE COLOR Orange; URINE GLUCOSE Negative (NEGATIVE); URINE LEUKOCYTE Large; URINE NITRATE Negative; URINE UROBILINOGEN 0.2 E.U./dl
[2023-07-29] MEDS ORDERED: FUROsemide 40 MG TABLET PO ONE (17:30)
--- NOTE | 2023-07-29 17:30 | NUR ---
SE ORIENTA SOBRE TX MEDICO, REFIERE ENTENDER. SE REALIZAN MUESTRAS DE LABORATORIO BAJO MEDIDAS ASEPTICAS. SE ADMINISTRA MEDICAMENTO PAPA ORDEN MEDICA.
[2023-07-29 17:31] LABS: URINE EPITHELIAL CELLS 7.4 uL (0.0-38.8); URINE RBC 4467.8 uL (0.0-20.8); URINE WBC 1791.6 uL (0.0-23.2)
[2023-07-29 17:52] LABS: URINE BACTERIA > 9821.5 uL (0.0-1933); URINE MUCUS SCANT; URINE PROTEIN 300 (NEGATIVE)
[2023-07-29 17:54] LABS: HEMOGLOBIN 9.9 g/dL (12.0-15.00); MEAN CORPUSCULAR HEMOGLOBIN 29.5 pg (27.00-32.0); PLATELET COUNT 238 K/uL (150-450); RED BLOOD COUNT 3.38 M/uL (4.00-6.00)
[2023-07-29 17:55] LABS: INR 1.08; PARTIAL THROMBOPLASTIN TIME 26.1 SECONDS (22.0-34.0); PROTHROMBIN TIME 11.3 SECONDS (9.0-11.5)
[2023-07-29 18:00] LABS: ALBUMIN 2.7 gm/dL (3.4-5.0); BILIRUBIN TOTAL 0.19 mg/dL (0.3-1.2); CALCIUM 10.5 mg/dL (8.5-10.1); CREATININE SERUM 1.08 mg/dL (0.55-1.02); GFR 48.81; GLOBULINA 4.6 G/DL (2.4-3.5); POTASSIUM 4.55 mEq/L (3.5-5.1); TOTAL PROTEIN 7.3 gm/dL (6.4-8.2)
[2023-07-29] MEDS ORDERED: SODIUM CHLORIDE 0.45 % 1,000 ML IV STA (18:57)
[2023-07-29] MEDS ORDERED: CEFTRIAXONE SODIUM 2,000 MG VIAL IV ONE (19:00)
--- NOTE | 2023-07-29 19:13 | NUR ---
RE-EVALUA PACIENTE. SE ORIENTA SOBRE TX MEDICO, REFIERE ENTENDER. SE REALIZAN MUESTRAS DE LABORATORIO BAJO MEDIDAS ASEPTICAS. PACIENTE PERMANECERA BAJO OBSERVACION Y LA REALIZARA RE-EVALUACION MEDICA EL LUIS DE MANANA.
[2023-07-29] MEDS ORDERED: FAMOTIDINE/PF 20 MG in 0.9 % SODIUM CHLORIDE 100 ML IV SCH (23:02)
[2023-07-29] MEDS ORDERED: CEFTRIAXONE SODIUM 2,000 MG in 0.9 % SODIUM CHLORIDE 100 ML IV SCH (23:02)
[2023-07-29] MEDS ORDERED: FUROsemide 20 MG/2 ML VIAL IV SCH (23:05)
[2023-07-29] MEDS ORDERED: ONDANSETRON HCL 4 MG in 0.9 % SODIUM CHLORIDE 50 ML IV PRN (23:15)
[2023-07-29] MEDS ORDERED: 0.9 % SODIUM CHLORIDE 1,000 ML IV SCH (23:15)
--- NOTE | 2023-07-29 23:28 | NUR ---
SE RECIBE PTE ALERTA Y ORIENTADA X3 LA MISMA SE OBSERVA CON CANULA NASAL A 2 LITROS LA CUAL TOLERA, ANGIO #22 EN MANO DERECHA POR DONDE BAJA IVFLUID PAPA ORDEN MEDICA. SE REALIZAN VITALES Y SE DOCUMENTAN EN SISTEMA. PACIENTE ESTABLE CON BARNADAS ELEVADAS EN CAMA.
[2023-07-30 00:51] LABS: INR 1.06; PARTIAL THROMBOPLASTIN TIME 26.7 SECONDS (22.0-34.0); PROTHROMBIN TIME 11.1 SECONDS (9.0-11.5)
[2023-07-30 01:30] LABS: ALBUMIN 2.5 gm/dL (3.4-5.0); ALKALINE PHOSPHATASE 111 U/L (50-136); ALT/SGPT 13 U/L (12-78); ANION GAP 9 (10.0-20.0); AST/SGOT 20 U/L (15-37); BILIRUBIN TOTAL 0.19 mg/dL (0.3-1.2); BILIRUBIN,CONJUGATED < 0.10 mg/dL (0.0-0.2); BILIRUBIN,UNCONJUGATED 0.09 mg/dL (0.0-0.6); BLOOD UREA NITROGEN 19 mg/dL (7-18); BUN CREA RATIO 20 (7.0-25.0); CALCIUM 9.7 mg/dL (8.5-10.1); CARBON DIOXIDE 31 mEq/L (21-32); CHLORIDE 110 mmol/L (98-107); CREATININE SERUM 0.97 mg/dL (0.55-1.02); GLUCOSE FASTING 115 mg/dL (65-100); OSMOLALITY SERUM 294 MOSM/KG (275-295); PHOSPHOROUS 3.3 mg/dL (2.5-4.9); SODIUM 146 mmol/L (136-145); TOTAL PROTEIN 6.5 gm/dL (6.4-8.2)
[2023-07-30 01:31] LABS: GFR 55.25
[2023-07-30 07:18] LABS: HEMATOCRIT 30.1 % (36.0-45.00); MEAN CELL VOLUME 91.8 fL (80.00-100.00); MEAN CORPUSCULAR HEMOGLOBIN 30.5 pg (27.00-32.0); MEAN CORPUSCULAR HGB CONC 33.2 g/dl (32.0-36.0); PLATELET COUNT 196 K/uL (150-450); RED BLOOD COUNT 3.27 M/uL (4.00-6.00); RED CELL DISTRIBUTION WIDTH 16.3 % (11.5-14.5)
[2023-07-30 07:46] LABS: CALCIUM 10.1 mg/dL (8.5-10.1); CREATININE SERUM 0.89 mg/dL (0.55-1.02); GFR 61.02; POTASSIUM 3.78 mEq/L (3.5-5.1)
[2023-07-30] MEDS ORDERED: FAMOTIDINE/PF 20 MG in 0.9 % SODIUM CHLORIDE 100 ML IV SCH (09:00)
[2023-07-30 10:46] LABS: PH,URINE 6.5 (5.0-8.0); URINE APPEARANCE Cloudy; URINE BILIRRUBIN Negative (NEGATIVE); URINE BLOOD Large; URINE COLOR Yellow; URINE GLUCOSE Negative (NEGATIVE); URINE LEUKOCYTE Large; URINE NITRATE Positive; URINE PROTEIN Trace (NEGATIVE); URINE UROBILINOGEN 0.2 E.U./dl
[2023-07-30 10:49] LABS: URINE BACTERIA 3032.7 uL (0.0-1933); URINE EPITHELIAL CELLS 13.6 uL (0.0-38.8); URINE WBC 2383.8 uL (0.0-23.2)
[2023-07-30] MEDS ORDERED: MEROPENEM 500 MG/VIAL VIAL IV SCH (14:00)
[2023-07-30] MEDS ORDERED: LACTOBACILLUS ACIDOPHILUS 1 CAP CAP PO SCH (17:00)
[2023-07-31] MEDS ORDERED: SODIUM CL 0.9% 100 ML IV.SOLN IV ONE (08:40)
[2023-07-31] MEDS ORDERED: ENOXAPARIN SODIUM 40 MG/0.4 ML SYRINGE SUBCUTANEO SCH (09:00)
[2023-07-31 09:58] LABS: HEMATOCRIT 28.6 % (36.0-45.00); HEMOGLOBIN 9.4 g/dL (12.0-15.00); MEAN CELL VOLUME 92.6 fL (80.00-100.00); MEAN CORPUSCULAR HEMOGLOBIN 30.5 pg (27.00-32.0); PLATELET COUNT 193 K/uL (150-450); RED BLOOD COUNT 3.08 M/uL (4.00-6.00); RED CELL DISTRIBUTION WIDTH 15.9 % (11.5-14.5)
[2023-07-31] MEDS ORDERED: TRAMADOL HCL 50 MG TABLET PO STA (10:21)
[2023-07-31 10:22] LABS: ALBUMIN 2.4 gm/dL (3.4-5.0); BILIRUBIN TOTAL 0.2 mg/dL (0.3-1.2); C-REACTIVE PROTEIN 1.51 MG/DL (0.00-0.29); CREATININE SERUM 0.84 mg/dL (0.55-1.02); GFR 65.24; GLOBULINA 3.6 G/DL (2.4-3.5); MAGNESIUM 1.6 mg/dL (1.8-2.4); PHOSPHOROUS 2.4 mg/dL (2.5-4.9); POTASSIUM 3.69 mEq/L (3.5-5.1)
[2023-07-31] MEDS ORDERED: TRAMADOL HCL 50 MG TABLET PO PRN (10:30)
[2023-07-31] MEDS ORDERED: CLOPIDOGREL BISULFATE 75 MG TABLET PO SCH (14:35)
[2023-07-31] MEDS ORDERED: ISOSORBIDE MONONITRATE 30 MG TABLET PO SCH (14:36)
[2023-07-31] MEDS ORDERED: Cyanocobalamin/Mecobalamin 1 TAB.SL SL SCH (14:38)
[2023-07-31] MEDS ORDERED: APIXABAN 2.5 MG TABLET PO SCH (17:00)
[2023-07-31] MEDS ORDERED: CARVEDILOL 6.25 MG TABLET PO SCH (17:00)
[2023-07-31] MEDS ORDERED: ATORVASTATIN CALCIUM 40 MG TABLET PO SCH (17:00)
[2023-07-31] MEDS ORDERED: PYRIDOXINE HCL 100 MG TABLET PO SCH (17:00)
[2023-07-31] MEDS ORDERED: SILVER SULFADIAZINE 50 GM,ZINC OXIDE 30 GM,NYSTATIN 15 GM TOP SCH (17:00)
[2023-07-31] MEDS ORDERED: FUROsemide 20 MG TABLET PO SCH (17:00)
[2023-07-31] MEDS ORDERED: VITAMIN B COMPLEX/LYSINE 1 ML ML PO SCH (17:10)
[2023-07-31] MEDS ORDERED: AMINO ACIDS/PROTEIN HYDROLYS 30 ML BLIST.PACK PO SCH (17:18)
[2023-07-31 18:54] LABS: PH,URINE 5.5 (5.0-8.0); URINE APPEARANCE Turbid; URINE BILIRRUBIN Negative (NEGATIVE); URINE BLOOD Negative; URINE COLOR Dark Yellow; URINE GLUCOSE Negative (NEGATIVE); URINE LEUKOCYTE Small; URINE NITRATE Negative; URINE PROTEIN Trace (NEGATIVE)
[2023-07-31 18:58] LABS: URINE BACTERIA 171.3 uL (0.0-1933); URINE RBC 3.8 uL (0.0-20.8); URINE WBC 53.9 uL (0.0-23.2)
[2023-08-01] MEDS ORDERED: FAMOtidine 20 MG TABLET PO SCH (21:00)
[2023-08-01 21:42] LABS: PH,URINE 5.5 (5.0-8.0); URINE APPEARANCE Turbid; URINE BILIRRUBIN Negative (NEGATIVE); URINE BLOOD Large; URINE COLOR Orange; URINE GLUCOSE Negative (NEGATIVE); URINE LEUKOCYTE Moderate; URINE NITRATE Negative; URINE UROBILINOGEN 0.2 E.U./dl
[2023-08-01 21:43] LABS: URINE BACTERIA 279.7 uL (0.0-1933); URINE EPITHELIAL CELLS 53.4 uL (0.0-38.8); URINE WBC 495.8 uL (0.0-23.2)
[2023-08-01 22:04] LABS: URINE MUCUS SCANT; URINE PROTEIN 100 (NEGATIVE); URINE RBC > 10558.9 uL (0.0-20.8)
[2023-08-02] MEDS ORDERED: FAMOTIDINE/PF 20 MG/2 ML VIAL ONE (23:59)
== END 2023-08-02 17:31 | disposition designated cancer center or children's hospital (05) | DRG 690 ==
LOC: ER 12:42 → MEDJ 23:05
PROVIDERS: Emergency Medicine; General Practice; Internal Medicine Infectious Disease; ADMIT Internal Medicine; ATTEND Internal Medicine
PROC: BW21ZZZ Computerized Tomography (CT Scan) of Abdomen and Pelvis (ICD-10-PCS; principal; 2023-07-29)
DX: N39.0 Urinary tract infection, site not specified (principal); E87.0 Hyperosmolality and hypernatremia; E86.0 Dehydration; I13.10 Hypertensive heart and chronic kidney disease without heart failure, with stage 1 through stage 4 chronic kidney disease, or unspecified chronic kidney disease; N18.9 Chronic kidney disease, unspecified; E03.9 Hypothyroidism, unspecified; B96.1 Klebsiella pneumoniae [K. pneumoniae] as the cause of diseases classified elsewhere; Z96.0 Presence of urogenital implants

== ENCOUNTER 2023-11-19 12:29 | Outpatient (CLI) | payer OTHER ==
[~2023-11-19 12:29] MED LIST changes: +GABAPENTIN100 MG
== END 2023-11-19 12:35 | disposition home or self-care (01) ==
LOC: RAD 12:29
PROVIDERS: ATTEND Surgery Surgery of the Hand
DX: M54.12 Radiculopathy, cervical region (principal); M19.049 Primary osteoarthritis, unspecified hand; M19.031 Primary osteoarthritis, right wrist; M19.032 Primary osteoarthritis, left wrist

== ENCOUNTER → 2024-01-04 | Outpatient (CLI) | payer OTHER | END | disposition home or self-care (01) | LOC: MRI 01-03 14:20 | PROVIDERS: ATTEND Physical Medicine & Rehabilitation | DX: M54.12 Radiculopathy, cervical region (principal); M75.101 Unspecified rotator cuff tear or rupture of right shoulder, not specified as traumatic | CPT/HCPCS: 72141; 73222 ==

== ENCOUNTER 2024-03-17 09:26 | Outpatient (CLI) | payer OTHER ==
[2024-03-17 10:04] LABS: HEMATOCRIT 37.8 % (36.0-45.00); HEMOGLOBIN 12.3 g/dL (12.0-15.00); MEAN CELL VOLUME 96.7 fL (80.00-100.00); MEAN CORPUSCULAR HEMOGLOBIN 31.5 pg (27.00-32.0); MEAN CORPUSCULAR HGB CONC 32.5 g/dl (32.0-36.0); PLATELET COUNT 188 K/uL (150-450); RED BLOOD COUNT 3.91 M/uL (4.00-6.00); RED CELL DISTRIBUTION WIDTH 14.3 % (11.5-14.5)
[2024-03-17 10:51] LABS: PH,URINE 5.5 (5.0-8.0); URINE APPEARANCE Clear; URINE BILIRRUBIN Negative (NEGATIVE); URINE BLOOD Negative; URINE COLOR Yellow; URINE GLUCOSE Negative (NEGATIVE); URINE KETONE Negative (NEGATIVE); URINE LEUKOCYTE Small; URINE NITRATE Negative; URINE PROTEIN Negative (NEGATIVE); URINE UROBILINOGEN 0.2 E.U./dl
[2024-03-17 10:55] LABS: URINE EPITHELIAL CELLS 71.1 uL (0.0-38.8); URINE RBC 10.2 uL (0.0-20.8)
[2024-03-17 11:01] LABS: URINE BACTERIA > 9821.5 uL (0.0-1933); URINE CAST 1.37 uL (0.0-1.40)
[2024-03-17 11:25] LABS: CALCIUM 10.9 mg/dL (8.5-10.1); CHOL HDL RATIO 2.3 (0-5.0); CREATININE SERUM 1.15 mg/dL (0.55-1.02); GFR 45.4; POTASSIUM 4.74 mEq/L (3.5-5.1); T4 TOTAL 7.13 UG/DL (4.8-13.9); TSH 2.53 uIU/mL (0.358-3.74)
[2024-03-17 11:33] LABS: URINE CRYSTALS FEW /HPF
== END 2024-03-17 09:28 | disposition home or self-care (01) ==
LOC: LAB 09:26
PROVIDERS: ATTEND Internal Medicine Cardiovascular Disease
DX: E03.9 Hypothyroidism, unspecified (principal); E78.2 Mixed hyperlipidemia; E11.9 Type 2 diabetes mellitus without complications; I10 Essential (primary) hypertension

== ENCOUNTER → 2024-06-13 10:04 | Outpatient (CLI) | payer OTHER | END | disposition home or self-care (01) | LOC: NUCLEAR 10:00 | PROVIDERS: ATTEND Internal Medicine Cardiovascular Disease | DX: I42.9 Cardiomyopathy, unspecified (principal) ==

== ENCOUNTER 2024-07-07 10:34 | Emergency (ER) | payer OTHER ==
[~2024-07-07] VITALS: Ht 160 cm; Wt 68.0 kg
[2024-07-07 13:35] LABS: HEMATOCRIT 40.3 % (36.0-45.00); HEMOGLOBIN 13.3 g/dL (12.0-15.00); MEAN CELL VOLUME 94.6 fL (80.00-100.00); MEAN CORPUSCULAR HEMOGLOBIN 31.3 pg (27.00-32.0); MEAN CORPUSCULAR HGB CONC 33.1 g/dl (32.0-36.0); PLATELET COUNT 191 K/uL (150-450); RED BLOOD COUNT 4.26 M/uL (4.00-6.00)
[2024-07-07 13:43] LABS: URINE APPEARANCE Clear; URINE BILIRRUBIN Negative (NEGATIVE); URINE BLOOD Negative; URINE COLOR Yellow; URINE GLUCOSE Negative (NEGATIVE); URINE KETONE Trace (NEGATIVE); URINE LEUKOCYTE Moderate; URINE NITRATE Positive; URINE PROTEIN Negative (NEGATIVE); URINE UROBILINOGEN 0.2 E.U./dl
[2024-07-07 13:52] LABS: URINE CAST 5.44 uL (0.0-1.40); URINE EPITHELIAL CELLS 39.5 uL (0.0-38.8); URINE WBC 130.7 uL (0.0-23.2)
[2024-07-07 14:36] LABS: ALBUMIN 3.9 gm/dL (3.4-5.0); BILIRUBIN TOTAL 0.7 mg/dL (0.3-1.2); CALCIUM 11.4 mg/dL (8.5-10.1); CREATININE SERUM 1.64 mg/dL (0.55-1.02); GFR 30.14; GLOBULINA 3.5 G/DL (2.4-3.5); POTASSIUM 4.76 mEq/L (3.5-5.1); TOTAL PROTEIN 7.4 gm/dL (6.4-8.2)
[2024-07-07 14:49] LABS: URINE BACTERIA > 9821.5 uL (0.0-1933)
[2024-07-07 14:50] LABS: URINE MUCUS SCANT
[2024-07-07] MEDS ORDERED: METRONIDAZOLE500 MG PO (16:35)
[2024-07-07] MEDS ORDERED: CIPRO500 MG PO (16:35)
[2024-07-07] MEDS ORDERED: ZOFRAN8 MG PO (16:35)
[2024-07-07] MEDS ORDERED: PEPCID AC20 MG PO (16:35)
== END 2024-07-07 16:47 | disposition home or self-care (01) ==
LOC: ER 10:34
PROVIDERS: Emergency Medicine
DX: K57.92 Diverticulitis of intestine, part unspecified, without perforation or abscess without bleeding (principal); R10.2 Pelvic and perineal pain; Z88.6 Allergy status to analgesic agent; Z91.013 Allergy to seafood

== ENCOUNTER 2024-08-26 10:11 | Outpatient (CLI) | payer OTHER ==
[~2024-08-26 10:11] MED LIST changes: +CIPRO500 MG PO; +METRONIDAZOLE500 MG PO; +PEPCID AC20 MG PO; +ZOFRAN8 MG PO
== END 2024-08-26 10:20 | disposition home or self-care (01) ==
LOC: TOM 10:11
DX: R10.32 Left lower quadrant pain (principal); K57.32 Diverticulitis of large intestine without perforation or abscess without bleeding
CPT/HCPCS: 74177; Q9965

== ENCOUNTER 2024-11-27 18:49 | Emergency (ER) | payer OTHER ==
[~2024-11-27] VITALS: Ht 152.4 cm; Wt 67.6 kg
[2024-11-27 23:13] LABS: BASO % 0.4 % (0.1-1.2); EOS # 0.25 (0.04-0.54); EOS % 3.6 % (0.7-7.0); LYMPH # 2.02 (1.18-3.74); LYMPH % 29.4 % (19.3-53.1); MEAN PLATELET VOLUME 11.30 fl (9.4-12.4); MONO # 0.64 (0.24-0.82); MONO % 9.3 % (4.7-12.5); NEUT # 3.92 (1.56-6.13); NEUT % 57.2 % (34.0-71.1); RED CELL DISTRIBUTION WIDTH 13.2 % (11.6-14.4)
[2024-11-27 23:36] LABS: ALT/SGPT 16.0 U/L (12-78); AST/SGOT 16.0 U/L (15-37); BILIRUBIN TOTAL 0.35 mg/dL (0.3-1.2); BUN CREA RATIO 22.0 (7.0-25.0); CREATININE SERUM 1.33 mg/dL (0.55-1.02); GFR 38.29; GLOBULINA 3.4 G/DL (2.4-3.5); GLUCOSE FASTING 113.0 mg/dL (65-100); OSMOLALITY SERUM 295.0 MOSM/KG (275-295)
[2024-11-28 00:18] LABS: URINE APPEARANCE Clear; URINE BILIRRUBIN Negative (NEGATIVE); URINE BLOOD Negative; URINE COLOR Yellow; URINE GLUCOSE Negative (NEGATIVE); URINE KETONE Trace (NEGATIVE); URINE LEUKOCYTE Negative; URINE NITRATE Positive; URINE PROTEIN Negative (NEGATIVE); URINE UROBILINOGEN 0.2 E.U./dl
[2024-11-28 00:21] LABS: URINE EPITHELIAL CELLS 8.1 uL (0.0-38.8); URINE RBC 2.3 uL (0.0-20.8); URINE WBC 20.1 uL (0.0-23.2)
[2024-11-28 00:26] LABS: URINE BACTERIA > 9821.5 uL (0.0-1933); URINE CAST 0.00 uL (0.0-1.40)
== END 2024-11-28 01:43 | disposition home or self-care (01) ==
LOC: ER 18:49
PROVIDERS: Emergency Medicine
DX: R60.0 Localized edema (principal); I10 Essential (primary) hypertension; Z88.6 Allergy status to analgesic agent; Z91.013 Allergy to seafood

== ENCOUNTER 2025-03-16 11:30 | Outpatient (CLI) | payer OTHER | END 2025-03-16 11:37 | disposition home or self-care (01) | LOC: TOM 11:30 | PROVIDERS: ATTEND Internal Medicine Cardiovascular Disease | DX: M54.12 Radiculopathy, cervical region (principal); R13.10 Dysphagia, unspecified ==

== ENCOUNTER 2025-04-15 07:04 | Outpatient (CLI) | payer OTHER | END 2025-04-15 07:05 | disposition home or self-care (01) | LOC: NUCLEAR 07:04 | PROVIDERS: ATTEND Internal Medicine | DX: R11.0 Nausea (principal) | CPT/HCPCS: 78264; A9512 ==

== ENCOUNTER 2025-04-20 10:24 | Outpatient (CLI) | payer OTHER | END 2025-04-20 10:28 | disposition home or self-care (01) | LOC: MAMO-SONO 10:24 | PROVIDERS: ATTEND Internal Medicine Cardiovascular Disease | DX: N60.11 Diffuse cystic mastopathy of right breast (principal); N60.12 Diffuse cystic mastopathy of left breast; Z12.31 Encounter for screening mammogram for malignant neoplasm of breast; E03.9 Hypothyroidism, unspecified ==